=== PATIENT | male | born 1980 | race African-American/Black ===

== ENCOUNTER 2019-02-01 17:59 | Emergency (ER) | payer MEDICARE ==
[~2019-02-01] VITALS: Ht 195.6 cm; Wt 91.0 kg
[2019-02-01 18:23] VITALS: BP 150/82
== END 2019-02-01 20:00 | disposition left against medical advice (07) ==
LOC: ER 17:59
DX: R10.13 Epigastric pain (principal); Z53.21 Procedure and treatment not carried out due to patient leaving prior to being seen by health care provider